=== PATIENT | female | born 1955 | race Caucasian/White ===

== ENCOUNTER → 2024-08-15 | Outpatient (CLI) | payer MEDICARE | LOC: M WHC 12:42 | PROVIDERS: ATTEND Internal Medicine | DX: Z78.0 Asymptomatic menopausal state (principal); M85.89 Other specified disorders of bone density and structure, multiple sites ==

== ENCOUNTER → 2025-05-09 | Outpatient (CLI) | payer MEDICARE | LOC: M RAD 12:53 | PROVIDERS: ATTEND Internal Medicine | DX: N28.1 Cyst of kidney, acquired (principal); N13.39 Other hydronephrosis ==

== ENCOUNTER → 2025-05-31 | Outpatient (CLI) | payer MEDICARE ==
[~2025-05-31] MED LIST: ISOVUE-370 76% 100 ML VIAL As Ordered ONE
== END ==
LOC: M RAD 14:02
PROVIDERS: ATTEND Internal Medicine
DX: N13.30 Unspecified hydronephrosis (principal); K83.8 Other specified diseases of biliary tract
CPT/HCPCS: 74178; Q9967